=== PATIENT | male | born 1990 | race Caucasian/White ===

== ENCOUNTER 2018-05-31 19:45 | Emergency (ER) | payer OTHER ==
[2018-05-31] MEDS ORDERED: ONDANSETRON 4 MG TAB.RAPDIS PO ONE (20:15)
[2018-05-31] MEDS ORDERED: TRAMADOL HCL 50 MG TABLET PO ONE (20:15)
--- NOTE | 2018-05-31 20:17 | ER Document Report ---
ED Medical Screen (RME) - General Chief Complaint: Headache Stated Complaint: HEADACHE Time Seen by Provider: 05/31/18 20:15 Mode of Arrival: Ambulatory Information source: Patient, Parent TRAVEL OUTSIDE OF THE [place] IN LAST 30 DAYS: No - HPI Patient complains to provider of: migraine GOINS Onset: Other - Pt. with h/o chronic migraine with typical GOINS for the past 3 days not responding to usual therapy. Also c/o L posterior neck pain with numbness of L arm and hand. - Related Data Allergies/Adverse Reactions: ketorolac [From Toradol] Allergy (Verified 05/31/18 19:48) Physical Exam - Vital signs Vitals: Temp Pulse Resp BP Pulse Ox 98.4 F 67 18 141/88 H 99 05/31/18 19:56 05/31/18 19:56 05/31/18 19:56 05/31/18 19:56 05/31/18 19:56 Course - Vital Signs Vital signs: Temp Pulse Resp BP Pulse Ox 98.4 F 67 18 141/88 H 99 05/31/18 19:56 05/31/18 19:56 05/31/18 19:56 05/31/18 19:56 05/31/18 19:56
[2018-05-31] MEDS ORDERED: METOCLOPRAMIDE HCL INJ/PF 10 MG/2 ML SDV IV ONE (20:24)
[2018-05-31] MEDS ORDERED: NORMAL SALINE 1000 ML 1,000 ML IV ONE (20:24)
[2018-05-31] MEDS ORDERED: BUPIVACAINE HCL 0.75% INJ/PF (7.5 MG/1 ML) 10 ML SDV INJ ONE (21:04)
[2018-05-31] MEDS ORDERED: LIDOCAINE 5% (700 MG) TRANSDERMAL ADH..PATCH TP ONE (21:13)
--- NOTE | 2018-05-31 21:20 | ER Document Report ---
ED General - General Chief Complaint: Headache Stated Complaint: HEADACHE Time Seen by Provider: 05/31/18 20:15 Mode of Arrival: Ambulatory Notes: Patient is a 28-year-old male with a past medical history of chronic migraine headaches who presents with 1 of his typical migraine headaches as well as left shoulder, left trapezius and left periscapular musculoskeletal pain. The patient also notes that he is having paresthesias and pain shooting down his left upper extremity. The patient describes that the headache has been ongoing for the past 3 days. It is a global, throbbing, severe headache that was gradual in onset and has gotten progressively worse over that period of time. The patient states that he has taken his home abortive medications without any relief of the pain. Nothing seems to worsen the pain other than lights and sound. States this feels very similar to migraine headaches that he has had in the past although he notes he does not usually also have associated musculoskeletal pain of his left upper extremity. He is uncertain if he has done anything to injure his left shoulder. The left shoulder and left trapezius pain has been ongoing for the past 24 hours. He has not seen his primary care doctor regarding today's concerns. He denies associated fever or constitutional symptoms. Denies any weakness or loss of sensation but does note some intermittent paresthesias to left forearm and first 3 digits of the left hand. TRAVEL OUTSIDE OF THE [place] IN LAST 30 DAYS: No - Related Data Allergies/Adverse Reactions: ketorolac [From Toradol] Allergy (Verified 05/31/18 19:48) Past Medical History - General Information source: Patient, Parent - Social History Smoking Status: Never Smoker Frequency of alcohol use: None Drug Abuse: None Lives with: Parents Family History: Reviewed & Not Pertinent Patient has suicidal ideation: No Patient has homicidal ideation: No Neurological Medical History: Reports: Hx Migraine Renal/ Medical History: Denies: Hx Peritoneal Dialysis Psychiatric Medical History: Reports: Hx Depression - anxiety Past Surgical History: Reports: Hx Tonsillectomy Review of Systems - Review of Systems Notes: Constitutional: Negative for fever. HENT: Negative for sore throat. Eyes: Negative for visual changes. Cardiovascular: Negative for chest pain. Respiratory: Negative for shortness of breath. Gastrointestinal: Negative for abdominal pain, vomiting or diarrhea. Genitourinary: Negative for dysuria. Musculoskeletal: Positive for pain to the left trapezius, left periscapular muscles and left shoulder Skin: Negative for rash. Neurological: Positive for headache, paresthesias of the left upper extremity 10 point ROS negative except as marked above and in HPI. Physical Exam - Vital signs Vitals: Temp Pulse Resp BP Pulse Ox 98.4 F 67 18 141/88 H 99 05/31/18 19:56 05/31/18 19:56 05/31/18 19:56 05/31/18 19:56 05/31/18 19:56 Interpretation: Hypertensive Notes: PHYSICAL EXAMINATION: GENERAL: Appears to be in pain but no acute distress HEAD: Atraumatic, normocephalic. EYES: Pupils equal round and reactive to light, extraocular movements intact, sclera anicteric, conjunctiva are normal. ENT: nares patent, oropharynx clear without exudates. Moist mucous membranes. NECK: Normal range of motion, supple without lymphadenopathy LUNGS: Breath sounds clear to auscultation bilaterally and equal. No wheezes ra les or rhonchi. HEART: Regular rate and rhythm without murmurs ABDOMEN: Soft, nontender, normoactive bowel sounds. No guarding, no rebound. No masses appreciated. EXTREMITIES: Normal range of motion, no pitting or edema. No cyanosis. NEUROLOGICAL: Face symmetric. Tongue protrudes midline. Extraocular motions intact. Pupils are 2 mm and equally reactive. Normal speech, normal gait. 5 out of 5 strength in both the distal and proximal upper and lower extremities bilaterally. Sensation is grossly intact throughout. Finger to nose testing normal. Pronator drift normal. RMU motor and sensory distribution is intact bilaterally including against resistance on motor testing of the bilateral upper extremities PSYCH: Normal mood, normal affect. SKIN: Warm, Dry, normal turgor, no rashes or lesions noted. Course - Re-evaluation Re-evalutation: 05/31/18 21:19 Presentation of a headache that appears to be most consistent with tension versus migrainous type headache. Headache was not maximal in onset, patient has no focal neurologic deficits, no nuchal rigidity, vital signs within normal limits, no papilledema, and patient is overall well in appearance. Based on clinical history and examination I do not suspect an acute subarachnoid hemorrhage, dural venous sinus thrombosis, acute meningitis, or intercranial mass. Given my low clinical suspicion for any acute life-threatening etiology, I do not feel advanced neuro imaging or laboratory testing is indicated at this time. Patient is also complaining of some periscapular pain and left trapezius pain likely from a musculoskeletal strain in conjunction with holding his shoulders in a position of tension with his headache. He does complain of some paresthesias of his left upper extremity but has no focal neurologic deficits on exam, RMU motor and sensory distribution is intact including resistance testing on the left hand. The patient has received metoclopramide and also a paraspinous block using 4 cc of bupivacaine on each side of the C6-7 vertebra. Will reassess the patient after these initial therapies have set in. 05/31/18 22:07 Patient has had resolution of his headache. States his neck pain is likewise much improved. Neurologic exam on reassessment remains unremarkable. Patient is requesting to go home stating he feels well enough to go and sleep. At this time will discharge with return precautions and follow-up recommendations. Verbal discharge instructions given a the bedside and opportunity for questions given. Medication warnings reviewed. Patient is in agreement with this plan and has verbalized understanding of return precautions and the need for primary care follow-up in the next 24-72 hours. - Vital Signs Vital signs: Temp Pulse Resp BP Pulse Ox 98.5 F 71 18 135/76 H 98 05/31/18 22:23 05/31/18 22:23 05/31/18 22:23 05/31/18 22:23 05/31/18 22:23 Procedures - Additional Procedures paraspinus block Notes: 06/01/18 03:22 The paracervical space bilaterally to the C6-7 junction was prepped with ChloraPrep. 3 mL of 0.75% bupivacaine was instilled using a 25-gauge needle on each side. Patient not experience any complication during the procedure. Bandages were placed after injection. Patient did have resolution of pain after placement of the block. Discharge - Discharge Clinical Impression: Neck pain Migraine headache Qualifiers: Migraine type: unspecified Status migrainosus presence: with status migrainosus Intractability: not intractable Qualified Code(s): G43.901 - Migraine, unspecified, not intractable, with status migrainosus Left shoulder pain Qualifiers: Chronicity: acute Qualified Code(s): M25.512 - Pain in left shoulder Condition: Good Disposition: HOME, SELF-CARE Additional Instructions: You were seen today for a migraine headache. Please follow-up with your primary care doctor regarding today's ED visit. Return to emergency department immediately if you develop a headache that gets to its maximum severity within 20 minutes of onset, you pass out, you develop weakness, numbness, changes in your vision, become unable to keep any fluids down for more than 12 hours, or develop a fever greater than 100.4 degrees Fahrenheit. \
[2018-05-31 22:24] VITALS: BP 135/76
== END 2018-05-31 22:27 | disposition home or self-care (01) ==
LOC: ER 19:45
PROC: 3E0R3BZ Introduction of Anesthetic Agent into Spinal Canal, Percutaneous Approach (ICD-10-PCS; principal; 2018-05-31)
DX: G43.901 Migraine, unspecified, not intractable, with status migrainosus (principal); M25.512 Pain in left shoulder; M54.2 Cervicalgia; R20.0 Anesthesia of skin
CPT/HCPCS: 99283; 96360; 62320; J3490; S0119; J2765; J7030

== ENCOUNTER 2018-06-03 10:26 | Emergency (ER) | payer OTHER ==
[2018-06-03 12:27] VITALS: BP 133/84
--- NOTE | 2018-06-03 12:32 | ER Document Report ---
ED Extremity Problem, Upper - General Chief Complaint: Back Pain Stated Complaint: BACK/NECK/ARM PAIN Time Seen by Provider: 06/03/18 12:11 Mode of Arrival: Ambulatory Information source: Patient Notes: 28-year-old male presented to ED for complaint of migraine and left arm not recently. He states he was given an injection in his back for the pain in his upper back but the pain is gotten worse. He states he does not have a migraine now he said he does have some numbness and tingling in his left arm. He has full range of motion to the arm and shoulder. He has 5 out of 5 strength to the shoulder and elbow. He states his primary care [facility] at [facility] and they sent him to the emergency room. TRAVEL OUTSIDE OF THE [place] IN LAST 30 DAYS: No - HPI Patient complains to provider of: Left, Shoulder, Other - And upper back Onset: Last week Recent injury: Possibly Quality of pain: Burning, Sharp Severity of pain: Moderate Pain Level: 4 Context: Other - Patient states he has multiple chronic problems Associated symptoms: Other - Pain to the left shoulder and arm with muscle pain to the Exacerbated by: Movement - upper back, Exertion Relieved by: Rest, Positioning Similar symptoms previously: Yes Recently seen / treated by doctor: Yes - Related Data Allergies/Adverse Reactions: ketorolac [From Toradol] Allergy (Verified 06/03/18 10:27) Past Medical History - General Information source: Patient - Social History Smoking Status: Former Smoker Cigarette use (# per day): No Chew tobacco use (# tins/day): No Smoking Education Provided: No Frequency of alcohol use: Rare Drug Abuse: None Lives with: Alone Family History: Reviewed & Not Pertinent Patient has suicidal ideation: No Patient has homicidal ideation: No - Past Medical History Cardiac Medical History: Reports: None Pulmonary Medical History: Reports: None EENT Medical History: Reports: None Neurological Medical History: Reports: Hx Migraine Endocrine Medical History: Reports: None Renal/ Medical History: Reports: None Malignancy Medical History: Reports None GI Medical History: Reports: None Musculoskeletal Medical History: Reports Hx Musculoskeletal Deformity, Reports Hx Musculoskeletal Trauma Skin Medical History: Reports None Psychiatric Medical History: Reports: Hx Anxiety, Hx Depression Traumatic Medical History: Reports: None Infectious Medical History: Reports: None Past Surgical History: Reports: Hx Adenoidectomy, Hx Tonsillectomy - Immunizations Immunizations up to date: Yes Hx Diphtheria, Pertussis, Tetanus Vaccination: Yes Review of Systems - Review of Systems Constitutional: No symptoms reported EENT: No symptoms reported Cardiovascular: No symptoms reported Respiratory: No symptoms reported Gastrointestinal: No symptoms reported Genitourinary: No symptoms reported Male Genitourinary: No symptoms reported Musculoskeletal: Muscle pain, Muscle stiffness Skin: No symptoms reported Hematologic/Lymphatic: No symptoms reported Neurological/Psychological: Numbness - States he has not had numbness off and on in this area since he was seen last time., Tingling - Tingling in the left arm off and on since he was last seen -: Yes All other systems reviewed and negative Physical Exam - Vital signs Vitals: Temp Pulse Resp BP Pulse Ox 98.6 F 66 16 134/87 H 100 06/03/18 10:31 06/03/18 10:31 06/03/18 10:31 06/03/18 10:31 06/03/18 10:31 Interpretation: Normal - General General appearance: Appears well, Alert - HEENT Head: Normocephalic, Atraumatic Eyes: Normal Pupils: PERRL - Respiratory Respiratory status: No respiratory distress Chest status: Nontender Breath sounds: Normal Chest palpation: Normal - Cardiovascular Rhythm: Regular Heart sounds: Normal auscultation Murmur: No - Abdominal Inspection: Normal Distension: No distension Bowel sounds: Normal Tenderness: Nontender Organomegaly: No organomegaly - Back Back: Normal, Nontender - Extremities General upper extremity: Tender - Tenderness to the left trapezius periscapular muscles left shoulder and down the left arm General lower extremity: Normal inspection, Nontender, Normal color, Normal ROM, Normal temperature, Normal weight bearing. No: Uriel's sign Shoulder: Tender. No: Limited ROM - Patient has full range of motion with 5 out of 5 strength to the shoulder flexion abduction abduction. Arm: Tender Elbow: No: Limited ROM - Patient has a 5 out of 5 strength flexion and extension - Neurological Neuro grossly intact: Yes Cognition: Normal Orientation: AAOx4 [place] Coma Scale Eye Opening: Spontaneous Kathy Coma Scale Verbal: Oriented [place] Coma Scale Motor: Obeys Commands [place] Coma Scale Total: 15 Speech: Normal Motor strength normal: LUE, RUE, LLE, RLE Sensory: Normal - Psychological Associated symptoms: Normal affect, Normal mood - Skin Skin Temperature: Warm Skin Moisture: Dry Skin Color: Normal Course - Re-evaluation Re-evalutation: 06/03/18 22:25 Patient was instructed on exercises, the inflammatory and muscle relaxers. Patient was was encouraged to follow-up with [facility] today or tomorrow and get a follow-up appointment with orthopedics for further testing for this muscular pain. Patient has full range of motion with 5 out of 5 strength against resistance. Patient was treated with ibuprofen and discharged home with instructions for anti-inflammatory and muscle relaxers. - Vital Signs Vital signs: Temp Pulse Resp BP Pulse Ox 97.6 F 65 16 133/84 H 100 06/03/18 12:26 06/03/18 12:26 06/03/18 12:26 06/03/18 12:06/03/18 12:26 Discharge - Discharge Clinical Impression: Left shoulder pain Qualifiers: Chronicity: unspecified Qualified Code(s): M25.512 - Pain in left shoulder Condition: Stable Disposition: HOME, SELF-CARE Additional Instructions: Shoulder Injury You have injured your shoulder. This usually results from stretching or tearing of the tendons during trauma. Time and protection are required in order to heal properly. Many injuries are quite disabling, and should be taken seriously. Initial treatment includes cold packs and a sling to rest the shoulder. The physician has assessed the seriousness of your injury, and has outlined a treatment plan. Understand that this treatment may change, depending on how you progress. If a re-examination was recommended, it is important that you follow up as instructed. Some shoulder injuries (such as partial tear of the rotator cuff) are only suspected after you've failed to improve. Call us if there's severe pain, numbness, or loss of function. Exercise Program for the Shoulder Since the shoulder moves in so many directions, the joint attachment is weak. Muscles provide most of the stability to the shoulder. You must exercise your shoulder to prevent painful instability or stiffening. PASSIVE - These may be begun within a few days of the injury. While standing, lean forward, allowing the arm to hang down towards the floor. Move the arm in small circles while slowly twisting your chest towards and away from the hanging arm. Do this for one minute. ACTIVE - These may be performed when the doctor gives permission. Begin with the arms at the sides. Raise the arms forward (shoulder's width apart) until they reach shoulder level. Then slowly swing both arms back until they are aiming straight out away from each other. Then bring them forward again, and finally, lower them to your sides. Repeat 20 to 30 times. As you improve, put weights in your hands for the exercise. Start with one pound, and work up to 10 pounds. Never use more than is comfortable. Athletes may work up to 30 pounds. Anti-Inflammatory Medication You have received a prescription for an antiinflammatory agent. This is an excellent, safe drug for pain control. In addition, it has potent antiinflammatory effects which are beneficial, especially in the treatment of injuries, arthritis, or tendonitis. It's best to take this medicine with food. Persons with ulcer disease or allergy to aspirin should notify their physician of this before taking this drug. Take the medication exactly as prescribed. Don't take additional doses unless instructed to do so by your doctor. If you develop wheezing, shortness of breath, hives, faintness, stomach pain, vomiting, or dark black stools, return for re-evaluation at once. Muscle Relaxers Muscle relaxing medications are usually prescribed for acute muscle spasm or injury to the neck and back. They are often combined with antiinflammatory pain medication for increased relief. You may stop the muscle relaxer when the pain and stiffness have improved. Start the medication again if spasms recur. Muscle relaxers may cause drowsiness, especially with the first dose. Do not operate machinery or drive while under the effects of the medication. Most muscle relaxers last up to 24 hours. Do not combine the medication with alcohol. Ice Packs Apply ice packs frequently against the painful area. Many different schedules are recommended, such as "20 minutes on, 20 minutes off" or "one hour ice, two hours rest." If you need to work, you may need to go longer between ice treatments. You should plan to have the area ice packed AT LEAST one fourth of the time. The ice should be applied over the wrap, tape, or splint, or over a layer of cloth -- not directly against the skin. Some ice bags have a built-in cloth and can be put directly on the skin. Warm Packs After approximately two days, apply gentle heat (such as a heating pad or hot water bottle) for about 20 to 30 minutes about every two hours -- at least four times daily. Warmth and elevation will help you make a more rapid recovery, and will ease the pain considerably. Do not use HOT heat, and never apply heat for longer than 30 minutes. The continuous heat can invisibly damage skin and muscles -- even when no burn is seen on the surface. Damaged muscles can make you MORE sore. FOLLOW-UP CARE: If you have been referred to a physician for follow-up care, call the physicians office for an appointment as you were instructed or within the next two days. If you experience worsening or a significant change in your symptoms, notify the physician immediately or return to the Emergency Department at any time for re-evaluation. Please call your [facility] provider and let them know you need a follow-up with master lay out specialist. You will probably need an MRI to find out what is going on with your shoulder. This is a muscle pain not a bony pain that can be x- rayed. Prescriptions: Methocarbamol [Robaxin 500 mg Tablet] 500 mg PO BIDP PRN #14 tablet PRN Reason: Naproxen 500 mg PO BIDP PRN #14 tablet.dr ALLRED Reason: Forms: Elevated Blood Pressure Referrals: [facility] [Provider Group] - Follow up as needed
== END 2018-06-03 12:42 | disposition home or self-care (01) ==
LOC: ER 10:26
DX: M25.512 Pain in left shoulder (principal); M54.9 Dorsalgia, unspecified; R20.0 Anesthesia of skin; M79.602 Pain in left arm; M54.6 Pain in thoracic spine; Z87.891 Personal history of nicotine dependence
CPT/HCPCS: 99283

== ENCOUNTER 2019-07-07 09:11 | Emergency (ER) | payer OTHER ==
[2019-07-07] MEDS ORDERED: PROCHLORPERAZINE EDISYLATE INJ 10 MG/2 ML VIAL IV ONE (09:48)
[2019-07-07] MEDS ORDERED: DIPHENHYDRAMINE HCL 50 MG/ML VIAL IV ONE (09:48)
--- NOTE | 2019-07-07 09:48 | ER Document Report ---
ED Medical Screen (RME) - General Chief Complaint: Headache Stated Complaint: HEADACHE Time Seen by Provider: 07/07/19 09:44 Mode of Arrival: Ambulatory Information source: Patient Notes: 29-year-old male patient presenting to the emergency department chief complaint of headache. Patient reports history of migraines. He states his headache started at approximately 2 AM, feels like 1 of his usual migraines. He has associated photophobia, phonophobia and nausea. Exam: Patient alert, oriented, answering all questions appropriately. Full range of motion of patient's neck, no nuchal rigidity noted. I have greeted and performed a rapid initial assessment of this patient. A comprehensive ED assessment and evaluation of the patient, analysis of test results and completion of the medical decision making process will be conducted by additional ED providers. I have specifically instructed the patient or family members with the patient to immediately return to any nursing staff shou ld anything change in the patient's condition or with their chief complaint. TRAVEL OUTSIDE OF THE [place] IN LAST 30 DAYS: No - Related Data Allergies/Adverse Reactions: ketorolac [From Toradol] Allergy (Verified 07/07/19 09:42) Home Medications: prozac, amiveg, tramadol, sumatriptan, roplax, buspar, to piramate Past Medical History - Social History Chew tobacco use (# tins/day): No Frequency of alcohol use: None Drug Abuse: None Neurological Medical History: Reports: Hx Migraine Renal/ Medical History: Denies: Hx Peritoneal Dialysis Musculoskeltal Medical History: Reports Hx Musculoskeletal Deformity, Reports Hx Musculoskeletal Trauma Psychiatric Medical History: Reports: Hx Anxiety, Hx Depression Past Surgical History: Reports: Hx Adenoidectomy, Hx Tonsillectomy - Immunizations Immunizations up to date: Yes Hx Diphtheria, Pertussis, Tetanus Vaccination: Yes Physical Exam - Vital signs Vitals: Temp Pulse Resp BP Pulse Ox 98.3 F 67 16 147/78 H 100 07/07/19 09:34 07/07/19 09:34 07/07/19 09:34 07/07/19 09:34 07/07/19 09:34 Course - Vital Signs Vital signs: Temp Pulse Resp BP Pulse Ox 98.3 F 67 16 147/78 H 100 07/07/19 09:34 07/07/19 09:34 07/07/19 09:34 07/07/19 09:34 07/07/19 09:34
[2019-07-07] MEDS ORDERED: NORMAL SALINE 1000 ML 1,000 ML IV ONE (09:49)
[2019-07-07 10:59] VITALS: BP 120/70
--- NOTE | 2019-07-07 11:01 | ER Document Report ---
ED General - General Chief Complaint: Headache Stated Complaint: HEADACHE Time Seen by Provider: 07/07/19 09:44 [facility] Provider: [facility] [Primary [facility]] - Follow up as needed Mode of Arrival: Ambulatory TRAVEL OUTSIDE OF THE [place] IN LAST 30 DAYS: No - HPI Notes: 29-year-old male with longstanding history of chronic/recurrent migraine he adaches with a chief complaint of his typical migraine which began at 2 AM today. Associated with vomiting and spots and flashes in visual chew. Bitemporal throbbing headache described as 10/10 intensity. No change from usual pattern. No trauma. No fever. No focal neurologic sensory or motor deficit. - Related Data Allergies/Adverse Reactions: ketorolac [From Toradol] Allergy (Verified 07/07/19 09:42) Home Medications: prozac, amiveg, tramadol, sumatriptan, roplax, buspar, topiramate Past Medical History - General Information source: Patient - Social History Smoking Status: Never Smoker Chew tobacco use (# tins/day): No Frequency of alcohol use: None Drug Abuse: None Family History: Reviewed & Not Pertinent Patient has suicidal ideation: No Patient has homicidal ideation: No Neurological Medical History: Reports: Hx Migraine Renal/ Medical History: Denies: Hx Peritoneal Dialysis Musculoskeletal Medical History: Reports Hx Musculoskeletal Deformity, Reports Hx Musculoskeletal Trauma Psychiatric Medical History: Reports: Hx Anxiety, Hx Depression Past Surgical History: Reports: Hx Adenoidectomy, Hx Tonsillectomy - Immunizations Immunizations up to date: Yes Hx Diphtheria, Pertussis, Tetanus Vaccination: Yes Review of Systems - Review of Systems Notes: Constitutional: Negative for fever. HENT: Negative for sore throat. Eyes: Negative for visual changes. Cardiovascular: Negative for chest pain. Respiratory: Negative for shortness of breath. Gastrointestinal: Negative for abdominal pain, vomiting or diarrhea. Genitourinary: Negative for dysuria. Musculoskeletal: Negative for back pain. Skin: Negative for rash. Neurological: As per HPI. 10 point ROS negative except as marked above and in HPI. Physical Exam - Vital signs Vitals: Temp Pulse Resp BP Pulse Ox 98.3 F 67 16 147/78 H 100 07/07/19 09:34 07/07/19 09:34 07/07/19 09:34 07/07/19 09:34 07/07/19 09:34 - Notes Notes: GENERAL: Male patient appearing approximately stated age who is moderately uncomfortable and photophobic. SKIN: Good turgor no rashes. HEAD: Normocephalic atraumatic. EYES: PERRLA. EOMI. Conjunctivae and sclerae clear. EARS: CANALS AND TMS CLEAR. NOSE: CLEAR. MOUTH: Moist mucosa. Good dentition. No stridor or edema. No drooling. NECK: Supple. No masses or thyromegaly. No adenopathy. Carotids 2+ without bruits. No JVD. BACK: Symmetrical without tenderness. CHEST: Respirations unlabored. Breath sounds clear and symmetrical. HEART: Regular rhythm. No murmur gallop or rub. ABDOMEN: Soft nontender without masses, organomegaly or rebound. Bowel sounds normally active. No bruits. GENITALIA: Deferred. EXTREMITIES: No edema. No calf tenderness. Cap refill less than 1.5 seconds. Dorsalis pedis and posterior tibial pulses 3+ and symmetrical. NEUROLOGICAL: GCS 15. Alert and oriented x3. Normal gait. Fluent speech. Cranial nerves II through XII intact. Sensorimotor and cerebellar normal. Normal tone. PSYCHIATRIC: Appropriate affect. Course - Re-evaluation Re-evalutation: 07/07/19 10:59 Patient was given 1 L normal saline IV along with Compazine and Benadryl IV. Symptoms resolved and he is requesting discharge. - Vital Signs Vital signs: Temp Pulse Resp BP Pulse Ox 98.3 F 67 16 147/78 H 100 07/07/19 09:34 07/07/19 09:34 07/07/19 09:34 07/07/19 09:34 07/07/19 09:34 Discharge - Discharge Clinical Impression: Migraine headache Qualifiers: Migraine type: with aura Status migrainosus presence: without status migrainosus Intractability: not intractable Qualified Code(s): G43.109 - Migraine with aura, not intractable, without status migrainosus Disposition: HOME, SELF-CARE Instructions: Headache ([facility]) Additional Instructions: Continue your usual medications. Return here as needed for new or worsening symptoms: Pain that is worsening or unimproved Uncontrolled vomiting High fever or shaking chills Overall worsening Forms: Return to Work Referrals: [facility] [Primary Care Provider] - Follow up as needed
== END 2019-07-07 11:04 | disposition home or self-care (01) ==
LOC: ER 09:11
DX: G43.109 Migraine with aura, not intractable, without status migrainosus (principal); R11.10 Vomiting, unspecified; F41.9 Anxiety disorder, unspecified; F32.9 Major depressive disorder, single episode, unspecified; Z79.899 Other long term (current) drug therapy; Z88.8 Allergy status to other drugs, medicaments and biological substances
CPT/HCPCS: 99283; 96361; 96374; 96375; J1200; J0780; J7030